=== PATIENT | male | born 1950 | race Two or more races ===

== ENCOUNTER → 2020-05-19 | Outpatient (CLI) | payer MEDICARE, MEDICAID ==
--- NOTE | 2020-05-19 15:14 | Consultation ---
DATE OF CONSULTATION: 05/19/2020 REASON FOR CONSULTATION: Referral for colonoscopy and endoscopy. PAST MEDICAL HISTORY: 1. Hypertension. 2. Hypertriglyceridemia. 3. Diabetes. 4. Hypothyroidism. 5. BPH. PAST SURGICAL HISTORY: The patient had leg surgery and fistulectomy. MEDICATIONS: See medication reconciliation list. FAMILY HISTORY: No family history of GI malignancies. SOCIAL HISTORY: The patient drinks 1 to 2 beers a week. Denies any tobacco usage. He quit about 20 years ago. ALLERGIES: No known allergies. REVIEW OF SYSTEMS: Positive for eating too much, overweight, otherwise no diarrhea, no constipation. No melena. No hematochezia. PHYSICAL EXAMINATION: VITAL SIGNS: Temperature 96.9, blood pressure is 148/93, pulse is 61, respirations 20, weight is 195.7. HEENT: Normocephalic and atraumatic. Sclerae anicteric. NECK: Supple. No evidence of obvious lymphadenopathy. CARDIOVASCULAR: Regular rhythm. Plus S1-S2. LUNGS: Clear to auscultation bilaterally. ABDOMEN: Positive bowel sounds. Soft and nontender. No rebound. No guarding. No peritoneal sign. EXTREMITIES: No cyanosis, no clubbing, no edema. ASSESSMENT/PLAN: A 69-year-old male, referred to us screening colonoscopy. Apparently, the patient had a colonoscopy over 10 years ago, so he definitely needs a colonoscopy. Also has some symptoms of GERD, bloating, which requires also endoscopy. Plan is to do endoscopy and colonoscopy. The patient was given instruction for the procedure. The risks and benefits were explained to him. We will schedule him as soon as authorization is obtained. Osmani Gallegos M.D. DR: OLIVIER JOB#: [id number] CC:
== END | disposition home or self-care (01) ==
LOC: PAN 13:41
DX: K21.9 Gastro-esophageal reflux disease without esophagitis (principal); R14.0 Abdominal distension (gaseous); I10 Essential (primary) hypertension; E78.1 Pure hyperglyceridemia; E11.9 Type 2 diabetes mellitus without complications; E03.9 Hypothyroidism, unspecified